=== PATIENT | male | born 1985 | race Caucasian/White ===

== ENCOUNTER 2016-10-21 15:30 | Emergency (ER) | payer SELFPAY ==
[~2016-10-21] VITALS: Ht 160 cm; Wt 89.0 kg
[2016-10-21 15:36] VITALS: Ht 160 cm; Wt 89.0 kg
[2016-10-21] MEDS ORDERED: ELIM TOP (16:04)
[2016-10-21] MEDS ORDERED: HYDR-845 PO (16:04)
[2016-10-21] MEDS ORDERED: KENC1 TOP (16:04)
--- NOTE | 2016-10-21 16:09 | ERD ---
ER Documentation Chief Complaint Date/Time DATE: 10/21/16 TIME: 16:07 Chief Complaint rash, possible scabies HPI 31-year-old male who presents with his . contact center rep use. He describes several months of a rash to the extremities and trunk that is mild, pruritic. His has similar lesions for 8 months. No other family members have these lesions. They have tried to clean the house. They have not used permethrin or steroid cream. No fevers or chills. ROS All systems reviewed and are negative except as per history of present illness. Medications Home Meds Active Scripts Permethrin* (Elimite*) 5% Cr, 1 APPLIC TOP ONCE, #1 TUB Prov:DEN BAKER MD 10/21/16 Triamcinolone Acetonide* (Kenalog*) 0.1%-15GM Cr, 1 APPLIC TOP TID, #1 TUB Prov:DEN BAKER MD 10/21/16 Hydroxyzine Hcl* (Atarax*) 50 Mg Tab, 50 MG PO Q8H Y for ITCHING, #30 TAB Prov:DEN BAKER MD 10/21/16 Physical Exam Vitals Vital Signs Date Time Temp Pulse Resp B/P Pulse Ox O2 Delivery O2 Flow Rate FiO2 10/21/16 15:36 98.2 90 20 130/78 99 Physical Exam General: Well developed, well nourished, no acute distress Head: Normocephalic, atraumatic. Eyes: EOM intact ENT: Moist mucous membranes Neck: Full ROM Respiratory: No respiratory distress Cardiovascular: Good capillary refil Abdominal: Nondistended : Deferred MSK: No edema, no unilateral swelling, 5/5 strength Neurologic: Alert and oriented, moving all extremities, normal speech, steady gait Skin: Scaly lesions of her extremities and trunk, no lesions into the interdigital spaces of the hands or feet, no erythema warmth or tenderness Psych: Normal mood Procedures/MDM Lesions are consistent with either contact dermatitis secondary to bedbugs versus scabies. The patient will benefit from permethrin wash and topical steroids. I discussed outpatient follow-up with dermatology given chronicity of symptoms. No evidence of systemic illness or significant infestation. We discussed follow up with the patient's primary care doctor within 24 to 48 hours as needed. We also discussed return to the emergency room for worsening symptoms or worsening condition. No signs or symptoms of immunocompromise state, outpatient primary care follow- up is recommended. Outpatient referral: Dermatology Discharge Medications: Atarax, permethrin, triamcinolone Departure Diagnosis: Primary Impression: Dermatitis Additional Impression: Bedbug bite Encounter type: initial encounter Qualified Code: W57.XXXA - Bedbug bite, initial encounter Condition: Stable Patient Instructions: Dermatitis, Non-Specific Referrals: TIFFANY MCCORD MD, JOSEPH F HARTMAN, ROBERT M MD [facility] () Usted se childress hecho un examen mdico de control que le indica que no est en madelaine condicin que requiera tratamiento urgente en el Departamento de Emergencia. Un estudio ms profundo y el tratamiento de grace condicin pueden esperar sin ningn riesgo hasta que usted sea atendida/o en el consultorio de grace mdico o madelaine cl aakash. Es responsabilidad suya arreglar madelaine turner para el seguimiento del royal. MANEJO DE CONDICIONES NO URGENTES EN EL FUTURO 1) Si usted tiene un mdico de atencin primaria: Usted debera llamar a grace mdico de atencin primaria antes de venir al departamento de emergencia. Despus de las horas de consultorio, grace doctor o grace asociado/a est disponible por telfono. El mdico o enfermero de tray en el servicio telefnico puede asesorarle por tarah medio para atender el problema, o royal contrario se puede programar madelaine turner. 2) Si usted no tiene un mdico de atencin primaria: Llame al mdico o clnica de referencia que aparece abajo adair las horas de consultorio para hacer madelaine turner para que le vean. CLINICAS: [facility] [phone] [id number] [facility] 050 [phone] [address] [facility] 913 [phone] [facility] 685 [phone] [place] [id number] [phone] [facility]. [phone] [address] [facility]. [facility] () Usted se childress hecho un examen mdico de control que le indica que no est en madelaine condicin que requiera tratamiento urgente en el Departamento de Emergencia. Un estudio ms profundo y el tratamiento de grace condicin pueden esperar sin ningn riesgo hasta que usted sea atendida/o en el consultorio de grace mdico o madelaine cl aakash. Es responsabilidad suya arreglar madelaine turner para el seguimiento del royal. MANEJO DE CONDICIONES NO URGENTES EN EL FUTURO 1) Si usted tiene un mdico de atencin primaria: Usted debera llamar a grace mdico de atencin primaria antes de venir al departamento de emergencia. Despus de las horas de consultorio, grace doctor o grace asociado/a est disponible por telfono. El mdico o enfermero de tray en el servicio telefnico puede asesorarle por tarah medio para atender el problema, o royal contrario se puede programar madelaine turner. 2) Si usted no tiene un mdico de atencin primaria: Llame al mdico o condado institucions de referencia que aparece abajo adair las horas de consultorio para hacer madelaine turner para que le vean. SI USTED NO PUEDE PAGAR PARA OLVIIA UN MEDICO puede ir a: [facility] [address] [place] [address] [facility] [address] [place] [address] [facility] [address] [place] [address] [facility] [address] [place] [address] Additional Instructions: Llame al doctor nombrado abajo (Referral Sources) MAANA y alexander madelaine TURNER PARA DENTRO DE MADELAINE SEMANA. Dgale a la secretaria que nosotros le instruimos hacer esta turner.Avise o llame si grace condicin se empeora antes de la turner. DEN BAKER MD October 21, 2016 16:09
== END 2016-10-21 17:16 | disposition home or self-care (01) ==
LOC: E/R 15:30
DX: L30.9 Dermatitis, unspecified (principal); S80.862A Insect bite (nonvenomous), left lower leg, initial encounter; S80.861A Insect bite (nonvenomous), right lower leg, initial encounter; S60.561A Insect bite (nonvenomous) of right hand, initial encounter; S60.562A Insect bite (nonvenomous) of left hand, initial encounter; S30.861A Insect bite (nonvenomous) of abdominal wall, initial encounter; W57.XXXA Bitten or stung by nonvenomous insect and other nonvenomous arthropods, initial encounter
CPT/HCPCS: 99284